=== PATIENT | female | born 1990 | race Caucasian/White ===

== ENCOUNTER 2020-10-04 11:16 | Outpatient (CLI) | payer OTHER, SELFPAY | END 2020-10-04 11:17 | disposition home or self-care (01) | PROVIDERS: Visit Provider Obstetrics & Gynecology | DX: R10.2 Pelvic and perineal pain (principal) | CPT/HCPCS: 36415; 86850; 86900; 86901 ==

== ENCOUNTER 2020-10-08 00:33 | Day surgery (SDC) | payer OTHER, SELFPAY ==
[2020-09-29 09:16] VITALS: BMI 28.5
--- NOTE | 2020-10-05 12:20 | P.HP_ITS ---
H&P: HPI History of Present Illness Date/Time: 10/05/20 12:20 29-year-old 1 para 1 is admitted for diagnostic. She has had about month or greater of severe pelvic she underwent ultrasound which showed normal appearing uterus normal-appearing right ovary and some left ovarian cysts. She finds her pain to be severe and she has been unable able to have intercourse. Risks and benefits were reviewed including but not exclusive of , aspiration pneumonia, bleeding, transfusion, perforation to bowel, bladder, ureters, other internal organs with need for open laparotomy. She received the [employer] handout entitled laparoscopy. She had all questions answered. She asked to proceed Chief Complaint: pelvic pain and dyspareunia Review of Systems Review of Systems: All systems reviewed & are unremarkable except as noted in HPI and below PMFSH Social History Social History Smoking status: Never smoker Alcohol intake: current Substance use: never Additional living arrangements comments: [place], [place] Spiritual care concerns: No Meds Home Medications and Allergies Home Medications Medication Instructions Recorded Confirmed Type biotin 5,000 mcg PO DAILY 09/29/20 09/29/20 History norgestimate-ethinyl estradiol 1 tablet PO DAILY 09/29/20 09/29/20 History [Sprintec (28)] psyllium husk [Fiber (psyllium 1 g PO DAILY 09/29/20 09/29/20 History husk)] Allergies Allergy/AdvReac Type Severity Reaction Status Date / Time No Known Allergies Allergy Unverified 09/29/20 09:09 Exam Const: General: no acute distress Eyes: General: appearance normal, both eyes and all related structures Neck: Neck: supple and no JVD Thyroid: thyroid normal Resp: Effort & Inspection: normal respiratory effort Auscultation: clear to auscultation bilaterally Cardio: Rate: regular rate Rhythm: regular rhythm GI: Inspection: non-distended GI Palp: Yes Soft to palpation, No Tenderness to palpation present (GI) and No Guarding due to palpation present (GI) Auscultation: normal bowel sounds : External Female Exam: normal external appearance Speculum Exam - Vagina: normal appearance of the vagina Speculum Exam - Cervix: Cervical os closed Bimanual exam- vagina & uterus: non-tender Bimanual Exam- Adnexa, o ther: adnexae mobile and tender on the left Skin: General skin exam: no rashes or lesions noted Extrem: General: normal to inspection and no edema Psych: Mental Status: mental status grossly normal Affect: normal affect Assessment and Plan Additional Plan impression: Pelvic pain Plan: Laparoscopy
[2020-10-08] VITALS (9 sets, daily range): BP systolic 103–122; BP diastolic 65–87; PULSE 58–80; RESP 12–17; TEMP 36.8–37; O2SAT 97–100; BMI 27.8
--- NOTE | 2020-10-08 05:52 | WPDHPUPDATE1 ---
History and Physical Update Update Date/Time: 10/08/20 05:52 History and Physical has been reviewed, including an updated exam of the patient. There are NO changes in the patient's condition. Risks, benefits, and alternatives have been discussed and questions answered. Patient agrees to proceed with procedure.
[2020-10-08] MEDS: LACTATED RINGERS 1,000 ML 30 ML IV CONT ×2 (10:55→13:12)
[2020-10-08] MEDS: KETOROLAC 15 MG/ML VIAL (*BKC) IV PUSH (10:56)
[2020-10-08] MEDS: ACETAMINOPHEN 500 MG TABLET 1000 MG PO (10:56)
[2020-10-08] MEDS: SCOPOLAMINE 1.5 MG PATCH TRANSDERM (11:30)
--- NOTE | 2020-10-08 12:17 | W.PM.PROC2 ---
Procedure Note - Detailed Date of Procedure 10/08/20 Pre-op Diagnosis pelvic pain Post-op Diagnosis same (Same with endometriosis and bilateral ovarian cysts /pelvic adhesions) Procedure Performed laparoscopic destruction of endometriosis / destruction of bilateral ovarian cyst/ lysis of adhesions Surgeon Vikas Villar MD Anesthesia general Indications this is a the 29-year-old 1 para 1 with pelvic pain Findings normal-appearing uterus. Normal-appearing tubes. Normal-appearing appendix. Normal-appearing gallbladder and liver edge. Bilateral ovarian cysts that appeared benign in nature. Blistered endometriosis along the right and left uterosacral ligaments. Adhesions from the colon to left lateral sidewall Description of Procedure patient was prepped draped fashion placed in the dorsal lithotomy position. Under excellent general endotracheal anesthesia weighted speculum placed in posterior fornix vagina. Anterior lip of the cervix grasped with single-tooth tenaculum and Reyes's cannula inserted to the cervix. These were later attached to be used for later uterine manipulation. The bladder was emptied of clear urine and the weighted speculum removed. Gloves were changed An infraumbilical incision made the Veress needle passed in the abdomen. The abdomen was filled with CO2 gas [id number]. The 5mm trocar was advanced under direct visualization with the Optiview scope and no injury seen. Gas reattached patient placed in Trendelenburg. A suprapubic incision made the 5mm trocar advanced under direct visualization assuring no injury. The above findings were seen the adhesions on left were sharply dissected using an Endo mini at to help visualize the left ovary and tube. Bilateral ovarian cyst that appeared simple in nature were present and these were cauterized at 35 w per 2nd draining clear fluid. Blistered endometriosis was seen along the right and left uterosacral ligaments and these were point cauterized at 35 w per 2nd. Irrigation undertaken to clear. The remainder of the pelvis appeared within normal limits and the lower site was removed. The gas removed from the abdomen the upper site removed. The incisions closed with 4 Monocryl and glue. The instruments from the vagina removed and the patient went to recovery in satisfactory condition. All sponge, needle, instrument counts were correct. There were no immediate complications Estimated Blood Loss 5 Drains No Packing No Pathology none sent Complications No immediate complications Condition stable Disposition same day
[2020-10-08] MEDS: fentaNYL CITRATE INJ (*CRX) 100 MCG/2 ML VIAL 25 MCG IV PUSH ×4 (12:44→13:13)
[2020-10-08] MEDS: ONDANSETRON INJ 4 MG/2 ML VIAL IV PUSH (14:04)
--- NOTE | 2020-11-01 11:05 | P.PNAN_ITS ---
Anes - Initial Pre Proc Eval Procedure: Operation Date: 10/08/20 12:30 Proposed Procedures p Diagnostic Laparoscopy - Vikas Villar MD Date/Time: 11/01/20 11:05 Surgeon: Vikas Villar MD Pre Op Diagnosis: pelvic pain Patient Data Age: 29 Gender: F Height: 1.59 m Weight: 70.2 kg Last Vital Signs Temp 98.2 F 10/08/20 12:23 Pulse 69 10/08/20 15:07 Resp 12 10/08/20 13:07 BP 107/70 10/08/20 15:07 Pulse Ox 97 10/08/20 13:07 Allergies Allergy/AdvReac Type Severity Reaction Status Date / Time No Known Allergies Allergy Unverified 09/29/20 09:09 Home Medications Medication Instructions Recorded Confirmed Type biotin 5,000 mcg PO DAILY 09/29/20 09/29/20 History norgestimate-ethinyl estradiol 1 tablet PO DAILY 09/29/20 09/29/20 History [Sprintec (28)] psyllium husk [Fiber (psyllium 1 g PO DAILY 09/29/20 09/29/20 History husk)] hydrocodone-acetaminophen 1 tablet PO Q4H PRN #30 tablet 10/08/20 Rx Patient hx anesthesia problems: none Family hx anesthesia problems: none PMFSH Past Medical History Medical History (Updated 10/08/20 @ 11:29 by Juan Monroe MD) Anemia Social History Social History Smoking status: Never smoker Alcohol intake: current Substance use: never Living arrangements: with family Additional living arrangements comments: [place], SON Spiritual care concerns: No Anes - Eval Final PreProcedure Day of Procedure 11/01/20 11:05 Patient weight: overweight Heart: regular rate and rhythm Lungs: clear to auscultation Airway: Mallampati scale class II Neurological: alert and oriented Last oral intake: >/= 8 hours ASA classification: II Emergent: no Anesthetic plan: proceed Anesthesia type and monitoring: general ETT and standard monitoring Informed Consent: The patient's anesthetic plan and its attendant risks and be nefits were discussed with the patient/family/POA. Questions were solicited and answers provided to the satisfaction of the patient/family/POA.
== END 2020-10-08 15:16 | disposition home or self-care (01) ==
PROVIDERS: Visit Provider Obstetrics & Gynecology
PROC: (CPT 49320; principal; 2020-10-08 12:30)
DX: R10.2 Pelvic and perineal pain (principal); N83.202 Unspecified ovarian cyst, left side; N83.201 Unspecified ovarian cyst, right side; N80.3 Endometriosis of pelvic peritoneum; K66.0 Peritoneal adhesions (postprocedural) (postinfection)
CPT/HCPCS: 58662; A9270; J0330; J1100; J1885; J2250; J2405; J2704; J2710; J3010; J7030; J7120